=== PATIENT | male | born 1940 | race Caucasian/White ===

== ENCOUNTER 2023-12-07 06:40 | Outpatient (RCR) | payer OTHER, SELFPAY | END 2023-12-07 23:59 | disposition home or self-care (01) | LOC: RST 06:40 | PROVIDERS: ATTENDING PHYSICIAN Internal Medicine Gastroenterology; FAMILY PHYSICIAN Family Medicine | DX: R13.19 Other dysphagia (principal); R13.12 Dysphagia, oropharyngeal phase | CPT/HCPCS: 92526; 92610 ==

== ENCOUNTER → 2023-12-21 11:16 | Outpatient (REF) | payer OTHER, SELFPAY | LOC: RAD 11:16 | PROVIDERS: ATTENDING PHYSICIAN Internal Medicine Rheumatology; FAMILY PHYSICIAN Family Medicine | DX: M81.0 Age-related osteoporosis without current pathological fracture (principal) | CPT/HCPCS: 77080 ==

== ENCOUNTER 2024-01-04 08:00 | Outpatient (RCR) | payer OTHER, SELFPAY | END 2024-01-04 23:59 | disposition home or self-care (01) | LOC: RST 08:00 | PROVIDERS: ATTENDING PHYSICIAN Internal Medicine Gastroenterology; FAMILY PHYSICIAN Family Medicine | DX: R13.19 Other dysphagia (principal); R13.12 Dysphagia, oropharyngeal phase | CPT/HCPCS: 92526 ==

== ENCOUNTER → 2024-01-15 07:45 | Outpatient (REF) | payer OTHER, SELFPAY | LOC: RAD 07:45 | PROVIDERS: ATTENDING PHYSICIAN Surgery Vascular Surgery; FAMILY PHYSICIAN Family Medicine | DX: I71.43 Infrarenal abdominal aortic aneurysm, without rupture (principal) | CPT/HCPCS: 76770 ==

== ENCOUNTER 2024-01-25 06:26 | Outpatient (RCR) | payer OTHER, SELFPAY | END 2024-01-25 23:59 | disposition home or self-care (01) | LOC: RST 06:26 | PROVIDERS: ATTENDING PHYSICIAN Internal Medicine Gastroenterology; FAMILY PHYSICIAN Family Medicine | DX: R13.19 Other dysphagia (principal); R13.12 Dysphagia, oropharyngeal phase | CPT/HCPCS: 92526 ==

== ENCOUNTER → 2024-02-06 12:38 | Outpatient (REF) | payer OTHER, SELFPAY | LOC: RAD 12:38 | PROVIDERS: ATTENDING PHYSICIAN Family Medicine | DX: D35.02 Benign neoplasm of left adrenal gland (principal) | CPT/HCPCS: 74150 ==

== ENCOUNTER 2024-02-14 08:12 | Outpatient (REF) | payer OTHER, SELFPAY | END 2024-02-14 13:50 | disposition home or self-care (01) | LOC: RAD 08:12 | PROVIDERS: ATTENDING PHYSICIAN Internal Medicine Gastroenterology; FAMILY PHYSICIAN Family Medicine | DX: R13.12 Dysphagia, oropharyngeal phase (principal) | CPT/HCPCS: 74230; 92611 ==

== ENCOUNTER → 2024-08-18 10:21 | Outpatient (REF) | payer OTHER, SELFPAY | LOC: HWRAD 10:21 | PROVIDERS: ATTENDING PHYSICIAN Family Medicine | DX: M25.551 Pain in right hip (principal) | CPT/HCPCS: 73523 ==

== ENCOUNTER → 2024-10-21 16:06 | Outpatient (REF) | payer OTHER, SELFPAY | LOC: RAD 16:06 | PROVIDERS: ATTENDING PHYSICIAN Family Medicine | DX: M25.561 Pain in right knee (principal) | CPT/HCPCS: 73560 ==

== ENCOUNTER → 2024-12-04 10:14 | Outpatient (REF) | payer OTHER, SELFPAY | LOC: RCS 10:14 | PROVIDERS: ATTENDING PHYSICIAN Internal Medicine Cardiovascular Disease; FAMILY PHYSICIAN Family Medicine | DX: Z95.2 Presence of prosthetic heart valve (principal) | CPT/HCPCS: 93306 ==

== ENCOUNTER → 2025-01-27 07:48 | Outpatient (REF) | payer OTHER, SELFPAY | LOC: DHVS 07:48 | PROVIDERS: ATTENDING PHYSICIAN Physician Assistant; FAMILY PHYSICIAN Family Medicine | DX: I71.43 Infrarenal abdominal aortic aneurysm, without rupture (principal) | CPT/HCPCS: 76770 ==

== ENCOUNTER → 2025-02-10 11:02 | Outpatient (REF) | payer OTHER, SELFPAY | LOC: RAD 11:02 | PROVIDERS: ATTENDING PHYSICIAN Surgery Vascular Surgery; FAMILY PHYSICIAN Family Medicine | DX: I71.43 Infrarenal abdominal aortic aneurysm, without rupture (principal) | CPT/HCPCS: 74174; Q9967 ==

== ENCOUNTER 2025-04-16 06:11 | Inpatient (IN) | payer OTHER, SELFPAY ==
[2025-04-13 09:13] VITALS: BMI 23.6
[2025-04-13 09:59] LABS: % Basophils 0.6 % (0-2); % Eosinophils 1.2 % (0-6); % Immature Granulocytes 0.2 % (0-0.5); % Lymphocytes 20.4 % (20.5-51.1); % Monocytes 10.2 % (1.7-9.3); % Neutrophils 67.4 % (42.2-75.2); Absolute Eosinophils 0.1 10^3/uL (0-0.7); Absolute Lymphocytes 1.3 10^3/uL (1.2-3.4); Absolute Monocytes 0.7 10^3/uL (0.1-0.6); Absolute Neutrophils 4.4 10^3/uL (1.4-6.5); Hematocrit 39.7 % (39.0-52.0); Hemoglobin 13.4 g/dL (13.0-18.0); Mean Corp Hgb Conc. 33.8 g/dL (33.0-37.0); Mean Corpuscular Hgb 32.4 pg (27.0-31.0); Mean Corpuscular Volume 96.1 fL (80.0-94.0); Mean Platelet Volume 10.7 fL (7.4-10.4); Nucleated Red Blood Cells % 0 % (-); Platelet Count 89 10^3/uL (130-400); Red Blood Cell Count 4.13 10^6/uL (4.70-6.10); Red Cell Dist. Width 12.9 % (11.5-14.5); White Blood Cell Count 6.5 10^3/uL (4.8-10.8)
[2025-04-13 10:01] LABS: INR 0.97; PT 13.2 Sec (11.4-14.6)
[2025-04-13 10:02] LABS: APTT 29.7 Sec (23.4-35.0)
[2025-04-13 11:23] LABS: Blood Urea Nitrogen 33 mg/dl (9-20); Calcium 9.3 mg/dl (8.4-10.2); Carbon Dioxide 25 mmol/L (22-30); Chloride 101 mmol/L (98-107); Estimated Creatinine Clearance 47 ml/min; Glucose 93 mg/dl (70-99); Potassium 4.4 mmol/L (3.5-5.1); Sodium 132 mmol/L (135-145); eGFR > 60.00
--- NOTE | 2025-04-15 08:12 | PTCARENOTE ---
Addendum entered by Cate Horn RN 04/15/25 14:01:
Dr. Barboza notified of patients 6/2 platelets- no additional interventions required
Original Note:
Patients 6/2 Platelets Thao- Gavi @ Dr. Matute office notified
[2025-04-16] VITALS (12 sets, daily range): BP systolic 114–165; BP diastolic 47–96; BMI 22.7
[2025-04-16] MEDS: BACTROBAN NASAL 1 GRAM NASAL (06:57)
[2025-04-16] MEDS: PERIDEX 0.12% ORAL RINSE 15 ML PO (06:57)
--- NOTE | 2025-04-16 06:59 | W.SUR.PREOP ---
Pre-Operative Surgical Note
-
I have examined this patient prior to the performance of the scheduled procedure.
The patient's condition is unchanged from the time of the current History and
Physical and the patient is able to undergo the scheduled procedure.
[2025-04-16 07:28] LABS: % Basophils 0.6 % (0-2); % Eosinophils 1.9 % (0-6); % Immature Granulocytes 0.6 % (0-0.5); % Lymphocytes 19.7 % (20.5-51.1); % Monocytes 11.4 % (1.7-9.3); % Neutrophils 65.8 % (42.2-75.2); Absolute Eosinophils 0.1 10^3/uL (0-0.7); Absolute Lymphocytes 1.1 10^3/uL (1.2-3.4); Absolute Monocytes 0.6 10^3/uL (0.1-0.6); Absolute Neutrophils 3.5 10^3/uL (1.4-6.5); Hematocrit 39.5 % (39.0-52.0); Hemoglobin 13.6 g/dL (13.0-18.0); Mean Corp Hgb Conc. 34.4 g/dL (33.0-37.0); Mean Corpuscular Hgb 32.6 pg (27.0-31.0); Mean Corpuscular Volume 94.7 fL (80.0-94.0); Mean Platelet Volume 10.3 fL (7.4-10.4); Nucleated Red Blood Cells % 0 % (-); Platelet Count 85 10^3/uL (130-400); Red Blood Cell Count 4.17 10^6/uL (4.70-6.10); Red Cell Dist. Width 12.8 % (11.5-14.5); White Blood Cell Count 5.3 10^3/uL (4.8-10.8)
--- NOTE | 2025-04-16 09:41 | W.SUR.POST ---
Surgical Immediate Post Op
Note
Pre Op Diagnosis: AAA
Post Op Diagnosis: AAA
Procedure Performed: EVAR
Primary Surgeon: Kalia
Anesthesia: General
Estimated Blood Loss: 30cc
Fluids: See anesthesia flow sheet
Drains/Shunts: none
Specimens/Cultures: none
Doppler/Duplex/Angio (Y/N): Y
Complications: none
Operative Findings: Successful EVAR
[2025-04-16 10:15] LABS: Hematocrit 36.7 % (39.0-52.0); Hemoglobin 12.9 g/dL (13.0-18.0); Mean Corp Hgb Conc. 35.1 g/dL (33.0-37.0); Mean Corpuscular Hgb 33.1 pg (27.0-31.0); Mean Corpuscular Volume 94.1 fL (80.0-94.0); Mean Platelet Volume 10.5 fL (7.4-10.4); Platelet Count 70 10^3/uL (130-400); Red Cell Dist. Width 12.7 % (11.5-14.5); White Blood Cell Count 7.9 10^3/uL (4.8-10.8)
[2025-04-16] MEDS: CARDENE 200 IV (10:15)
[2025-04-16 10:30] LABS: APTT 33.4 Sec (23.4-35.0)
[2025-04-16 10:32] LABS: Blood Urea Nitrogen 24 mg/dl (9-20); Calcium 9.1 mg/dl (8.4-10.2); Carbon Dioxide 22 mmol/L (22-30); Chloride 109 mmol/L (98-107); Estimated Creatinine Clearance 51 ml/min; Glucose 103 mg/dl (70-99); Potassium 4.5 mmol/L (3.5-5.1); Sodium 137 mmol/L (135-145); eGFR > 60.00
--- NOTE | 2025-04-16 10:34 | OR.RPT ---
Operative Report
Operative Report
PROCEDURE DATE: 04/16/2025
Preoperative diagnosis: Enlarging infrarenal abdominal aortic aneurysm
Postoperative diagnosis: Same
Procedure:
1. Endovascular repair of abdominal aortic aneurysm with bifurcated modular endoprosthesis (Paradise C3 Excluder) with left iliac limb extension.
2. Percutaneous bilateral common femoral artery closure.
3. Supervision and interpretation.
Surgeon: Kalia
Booster Plant Operator: None
Complications: None
Anesthesia: General
Indications for procedure:
Abdominal aortic aneurysm over 5 cm that had demonstrated growth. Risk/benefit/alternatives of repair were fully discussed. Endovascular pair was discussed. Patient understood all wished to proceed.
Description of procedure:
Patient was identified brought to the operating room placed on the table in supine position. After the adequate administration of anesthesia and perioperative antibiotics he was prepped and draped in the standard surgical fashion. A standard
preoperative timeout was undertaken and everybody was in agreement the plan. Bilateral common femoral artery access was obtained under direct duplex ultrasound guidance. 6 Micronesian sheaths were placed over 0.035 inch wires. Next, small 1 cm
incisions were made around the sheath entry sites bilaterally. Blunt dissection was undertaken with hemostats to facilitate percutaneous suture delivery. Next, using the ProGlide suture system, percutaneous sutures were deployed at the 10:00 and 2
o'clock position bilaterally in the standard fashion. Suture strands were tagged outside the skin. We exchanged for 11 Micronesian sheaths bilaterally. The patient was given an 5000 units of intravenous heparin. Next using a KMP catheter, I guided
wires into the supraceliac aorta from bilateral access sites. On the right side I exchanged out for a pigtail catheter which was positioned in the juxtarenal aorta. I wished to obtain angiography to measure length to the iliacs so as to select the
appropriate graft. Therefore power injection aortography was performed and length to the right iliac bifurcation from the inferior edge of the renal arteries was measured. As such the appropriate graft was selected. Note the initial power
injection proved to be too high with the pigtail catheter, noting that the renal artery origins was slightly lower than would be expected. Note also there was a left-sided renal artery stenosis noted. This was seen on CT scan imaging prior as well.
Now Amplatz wires were placed up into the descending thoracic aorta from both groin access sites. On the right side 16 Micronesian Paradise dry seal sheath was advanced into the aorta, and from the left side 12 Micronesian Paradise dry seal sheath was advanced into
the aorta both done under fluoroscopy.
I then brought the main body device into place. It was oriented under fluoroscopy in the field before loading it over the wire and inserting it through the right-sided sheath. I had oriented such that the limbs would cross intentionally somewhat.
(This was based on the wire lay on fluoroscopy). The main body was a Paradise C3 Excluder 26 mm x 14 mm x 16 cm length (Paradise [id number]). Once this was advanced to the level of the juxtarenal aorta, power injection aortography was obtained via the
left-sided pigtail catheter. This was done in the appropriate obliquity based on the CT scan imaging prior. Initial imaging of the renal arteries was slightly challenging due to overlying bowel gas. I difficulty seeing the right renal artery
origin well. The right renal artery was just slightly lower than the left renal artery based on CT scan imaging. However was finally able to better ascertain. The origin of the renal arteries were marked on the screen.
Next, the right sided dry seal sheath was withdrawn to the level of the contralateral gate. I confirmed positioning of the contralateral gate and then began deployment of the stent graft just inferior to the renal artery origins. I was intially
satisfied with its positioning and deployed it to the level of the contralateral gate which was fully deployed now. I was satisfied. I then exchanged my pigtail catheter over a floppy Glidewire, and having pulled it down below the contralateral
gate I then used a KMP catheter and the floppy angled hydrophilic Glidewire to cannulate the contralateral gate. Once I did so I was then able to advance my pigtail catheter through the gate, spinning the catheter to confirm that I was in the true
lumen of the graft. Next I performed aortogram again to confirm positioning of the proximal aspect of the stent graft with good filling of the renal arteries. While both renal arteries filled reasonably well, I felt that they did encroach
especially on the right the renal artery origin. Therefore, I constrained the C3 Excluder graft and lower to the slightest bit. I did not really have to lower it much just by constraining it and then unconstraining it, it lowered a couple
millimeters just enough to pull away from the right renal artery origin so as not to encroach on it anymore. Now I was satisfied.
At this point I then placed an Amplatz wire through the left sided pigtail catheter and perform retrograde pelvic angiogram. This was done in the appropriate obliquity as well. The iliac bifurcation was marked on the screen. I then used a
contralateral limb with a 16 mm x 11.5cm contralateral iliac limb ([id number]). This was positioned nicely with suitable overlap in the contralateral gate (3 cm) and the distal aspect just short of the iliac bifurcation. Once I completed this, I
withdrew my sheath on the right side slightly further back in the pelvis. Pelvic angiogram demonstrated the iliac bifurcation and confirmed distal ipsilateral limb to be just appropriately short of the iliac bifurcation. I therefore then released
the top constraint of the stent graft, and then deployed the remainder of the ipsilateral iliac limb. I then withdrew the delivery device.
Next a molding balloon was used to molded the proximal and distal seal zones as well as the overlap sites. Power injection completion aortography was now performed that demonstrated good positioning of the graft. However it appeared that there may
have been a very subtle type Ia endoleak streaming along the left lateral wall of the graft. Therefore I then reused the molding balloon to mold the proximal seal zone once again. I thought that I might have to extend with an aortic cuff.
However, at this point, I obtained power injection aortography magnified. And now I could see the graft was actually very well-positioned only 1 or 2 mm inferior to the right renal artery. There provide no further room to extend. And now I did
not see any type Ia endoleak. There appeared to be potentially a small delayed type II endoleak. Now that I was satisfied, next I exchanged my pigtail catheter back for a Amplatz wire. Next, I sequentially removed the sheath while cinching down
the percutaneous sutures. This was initially done on the right side and then on the left. Once hemostasis was noted the wire was then withdrawn, the knot was tightened with a knot pusher. Hemostasis was confirmed. The knot was then locked and
the suture strands trimmed. This was done as noted on the right initially and then on the left. Hemostasis was fully achieved bilateral groins with good femoral pulses bilaterally. The small skin incisions were then closed with 4-0 Monocryl
subcuticular stitch and Dermabond was applied. Patient tolerated procedure well. He had palpable pedal pulses upon completion bilaterally. All sponge, needle, instrument counts were correct at the end of the case. Patient was transported to
recovery room in stable condition.
[2025-04-16 10:43] LABS: PT 15.8 Sec (11.4-14.6)
[2025-04-16] MEDS: NSS 1000 IV ×2 (11:01→22:07)
--- NOTE | 2025-04-16 11:42 | SUR.PHASEI ---
received patient from OR on Cardene drip, BP monitored and weaned off Cardene. approx 20 min after arrival in pacu - c/o numbness and pins and needles left hand - especially left thumb. good pulses. left hand with extensive purple echymosis from
pre- hospital. Reports this is common for him and has had shoulder impingment. then c/o some numbness left foot - brief. this also happens at home - neuropathy in feet. Dr Motta visits at bedside - updated. Foot normal. left thumb usually with
pins and needle feeling. vss, minimal discomfort .. discharge to ICCU with hand off at bedside.
--- NOTE | 2025-04-16 12:00 | PTCARENOTE ---
11:30, Received patient from PACU, post EVAR AAA, B/L groin puncture sites, surgical glue and open to air. Right groin site had a bump feeling, Dr. Motta was aware and said it's scar tissue. Pt A&Ox4, denied pain throughout, 2LNC titrated down to RA,
AICD left upper chest, V paced seen on the monitor, rate in the 60s, EKG ordered per ICU protocol, Right wrist Bernadette, zeroed and performed squarewave test, 16Fr Coude Armendariz draining yellow urine.
12:00, Restarted patient on Cardene drip per order as SBP was up in 170s. Made CONSUMER INSIGHTS SPECIALIST Erma aware.
--- NOTE | 2025-04-16 14:04 | CON.INTV ---
Consultation
Consultation Request
Date/Time Consultation Requested: 04/16/2025
Date/Time Consultation Performed: 04/16/2025
Requesting Provider: Ovi Motta
Performing Provider: Kurt Ferguson
Reason for Consultation: Abdominal Aortic aneurysm
Medical History
-
Chief Complaint: Enlarging AAA
History of Present Illness:
Patient is 84 gentleman with known history of critical aortic stenosis status post TAVR and known history of AAA. Patient follows up with vascular surgery as outpatient. A CT angio earlier this year compared to the year before showed enlargement
of the AAA. Patient was recommended to consider surgical repair. Patient was brought to the operating room on 04/16 and had endovascular repair of abdominal aortic aneurysm with bifurcated modular endoprosthesis along with left iliac limb
extension. Postprocedure, patient was admitted to the ICU and mixing plant dumper consultation was requested for further input.
Past Medical History: Reports Other (Cardiac (TAVR 06/24/2020, AICD placement August 2020), Tonsilectomy and Other (Hernia surgery, Partial parathyroidectomy, Nasal surgery)), RA, aortic stenosis s/p TAVR, AAA, heart failure with preserved ejection
fraction, history of TIA, gastroesophageal flux disease, hypertension, chronic thrombocytopenia history of glaucoma, cataract, prostate enlargement
Past Surgical History: Reports Other (Cardiac (TAVR 06/24/2020, AICD placement August 2020), Tonsilectomy and Other (Hernia surgery, Partial parathyroidectomy, Nasal surgery))
Social History
Tobacco: Non-smoker
Alcohol: None
Drug: None
Family History
Family History: Not pertinent
Allergies / Home Medications
Allergies / Home Medications
Allergies
Allergy/AdvReac Type Severity Reaction Status Date / Time
codeine Allergy hyperactive Verified 04/16/25 06:30
Home Medications
�Medication �Instructions �Recorded �Confirmed �Last Taken �Type
ascorbic acid (vitamin C) 1,000 mg 1,000 mg PO DAILY Supplement 05/27/20 04/16/25 04/08/25 08:00 History
tablet (Vitamin C)
cholecalciferol (vitamin D3) 25 1,000 unit PO DAILY Supplement 05/27/20 04/16/25 04/08/25 08:00 History
mcg (1,000 unit) capsule (Vitamin
D3)
coQ10 (ubiquinol) 100 mg capsule 100 mg PO BID Supplement 05/27/20 04/16/25 04/08/25 08:00 History
hydroxychloroquine 200 mg tablet 400 mg PO MOWEFR Rheumatoid 05/27/20 04/16/25 04/15/25 08:00 History
Arthritis
levothyroxine 50 mcg tablet 50 mcg PO DAILY Thyroid 05/27/20 04/16/25 04/16/25 05:00 History
rosuvastatin 40 mg tablet 20 mg PO HS High cholesterol 05/27/20 04/16/25 04/15/25 21:00 History
aspirin 81 mg chewable tablet 81 mg PO HS Blood clot 10/24/20 04/16/25 04/15/25 21:00 History
prevention/tx
metoprolol succinate 25 mg 12.5 mg PO QPM Blood pressure 01/24/23 04/16/25 04/15/25 21:00 History
tablet,extended release 24 hr
acetaminophen 325 mg tablet 650 mg (2 x 325 mg) PO Q4HPRN PRN 01/27/23 04/16/25 04/14/25 08:00 Rx
mild pain/PEREIRA/temp> 100.4F #30 tabs
Balance Of Nature 6 cap PO DAILY 04/08/25 04/16/25 04/08/25 08:00 History
Prevagen 1 tab PO DAILY 04/08/25 04/16/25 04/08/25 08:00 History
Probiotic 1 cap PO DAILY 04/08/25 04/16/25 04/08/25 08:00 History
ascorbic acid 1,000 1 ea PO PRN PRN Cold Symptoms 04/08/25 04/16/25 04/08/25 08:00 History
wf-[id number]-cnjbqdof powder
effervescent pack (Emergen-C)
guar gum 2 tbsp PO DAILY 04/08/25 04/16/25 04/15/25 08:00 History
hydroxychloroquine 200 mg tablet 200 mg PO SUTUTHSA 04/08/25 04/16/25 04/15/25 08:00 History
(Plaquenil)
pantoprazole 20 mg tablet,delayed 20 mg PO DAILY 04/08/25 04/16/25 04/15/25 08:00 History
release (Protonix)
polyethylene glycol 3350 17 gram 17 g PO DAILY 04/08/25 04/16/25 04/15/25 08:00 History
oral powder packet (Miralax)
magnesium 200 mg tablet 400 mg PO DAILY 04/16/25 04/16/25 04/08/25 08:00 History
Review of Systems
-
Hematologic/Lymphatic: Other (No new symptoms reported)
Vitals / Labs / Diagnostic Testing
Vital Signs
Temp Pulse Resp BP Pulse Ox
97.5 F 70 21 150/96 98
04/16/25 12:00 04/16/25 13:45 04/16/25 13:45 04/16/25 11:30 04/16/25 13:45
Lab Data
04/16/25 10:04
04/16/25 10:04
Laboratory Results
04/16/25
10:04
PT 15.8 H
INR 1.20
APTT 33.4
Diagnostic Testing:
Physical Exam
-
HEENT: Normocephalic
Cardiovascular: S1/S2
Respiratory: Clear and Non-Labored Respirations
GI: Soft and Non Distended
Neurology: Awake, Alert and Oriented
Skin: Warm
General: Comfortable
Assessment
-
Patient is s/p endovascular abdominal aortic aneurysm repair, by vascular surgery service, POD #0
Continue observation following procedure
Follow neurovascular checks per protocol
ASA, metoprolol and rosuvastatin
Follow BP monitoring and parameters as set by primary team
Cardiac history noted
Monitor on telemetry
Pain control per protocol
RASS goal 0
No prior history of pulmonary disease, No smoking history
CXR reviewed indicating no acute disease
PFT from 2007 reviewed, unremarkable
Encouraged IS
Diet advancement per protocol
Aspiration precautions
GI prophylaxis: On pantoprazole 20 daily
Creat at baseline, follow UO
Critical I/Os
Void trials
Replete electrolytes as needed
No signs/symptoms suspicious for infectious etiology at this time
Will observe off antibiotics for now
Follow temperatures/CBC
Hb and platelets postoperatively stable. Known history of chronic thrombocytopenia, will continue to monitor
DVT prophylaxis: On heparin
Encouraged OOB/PT/OT/ambulation once cleared by surgical team
Other medical diagnoses:
- Thrombocytopenia, chronic. Has been stable, no history of excessive bleeding
- History of coronary artery disease, last angiogram did not show any significant obstructive coronary artery disease
- History of critical aortic stenosis, status post TAVR with ICD
- Heart failure with preserved ejection fraction, EF 45 to 50%
- Gastroesophageal reflux disease
- Hyperlipidemia
- Hypothyroidism
Critical Care time 65 mins -- The patient is admitted for acute critical illness for the treatment of vital organ failure and/or prevention of further life-threatening conditions. Total care includes time spent in review of history, physical exam,
medications, hemodynamic/ventilator parameters, laboratory data, imaging and discussion with house staff, pharmacy, respiratory therapy, product support rep, and nursing.
Data:
CXR 04/2025: Unremarkable
CT Abd/pelvis Angio 02/2025: 1. FUSIFORM INFRARENAL ABDOMINAL AORTIC ANEURYSM (4.9 cm AP diameter).
2. SEVERE STENOSIS (greater than 70% diameter) in the PROXIMAL LEFT RENAL ARTERY.
3. Severe calcific atherosclerotic plaque in both proximal common iliac arteries causing less than 50% diameter stenosis.
4. 2.3 cm left adrenal adenoma.
5. Moderate air distention of the distal esophagus and stomach.
6. Previous TURP.
7. Grade 2 anterolisthesis of L4 on L5 secondary to severe facet joint arthrosis.
8. 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
ECHO 11/2024: Normal left ventricular wall thickness.
Mildly reduced left ventricular systolic function.
Left ventricular ejection fraction is 40% by Brandt's method, but visually 45-
50%.
Mild inferolateral and anterolateral wall hypokinesis.
ICD wire seen.
Mild to moderate mitral regurgitation.
TAVR with peak/mean gradients across the aortic valve are 16/7 mmHg.
No aortic regurgitation is seen.
Mild to moderate tricuspid regurgitation.
Mild to moderate pulmonic regurgitation.
Normal pericardium without effusion.
Compared to 11/2023 echocardiogram LV function and TAVR gradients are stable
PFT 2007. Normal spirometry, normal lung volumes, normal diffusion capacity.
TAVR 06/2020: 1. Severe symptomatic aortic stenosis. Successful deployment of a 29 mm Ash S3 valve with minimal aortic insufficiency post procedure
2. Successful arteriotomy closure with 2 Perclose devices and an 8 Fr. Angio-Seal
3. Coronary angiography post valve deployment with stable widely patent coronary anatomy
4. Successful closure of the left common femoral arteriotomy with a 6 Fr. Angio-Seal
--- NOTE | 2025-04-16 16:00 | PTCARENOTE ---
Reassessed the patient, no changes from previous assessments. Odilon Newman was updated at bedside.
[2025-04-16] MEDS: TOPROL XL 12.5 MG PO (17:42)
--- NOTE | 2025-04-16 20:00 | PTCARENOTE ---
Resumed care of pt this evening. Neurovascular checks performed w/ dayshift RN and were unchanged. Pt denies any numbness or tingling sensations. Pt able to lift legs, wiggle toes, and has adequate capillary refill. Pt's lower extremities are also
warm to touch. Pt's b/l groin surgical sites are scabbed, FLOW TRADER w/ surgical adhesive present. Pt denies pain at this time.
[2025-04-16] MEDS: LOW STRENGTH ASPIRIN 81 MG PO (22:07)
[2025-04-16] MEDS: CRESTOR 20 MG PO (22:07)
--- NOTE | 2025-04-17 01:00 | PTCARENOTE ---
Upon reassessment neurovascular checks remain unchanged. Pt resting comfortably.
[2025-04-17 04:11] VITALS: BMI 23.1
[2025-04-17 04:23] LABS: Hematocrit 38.1 % (39.0-52.0); Hemoglobin 13.4 g/dL (13.0-18.0); Mean Corp Hgb Conc. 35.2 g/dL (33.0-37.0); Mean Corpuscular Hgb 32.8 pg (27.0-31.0); Mean Corpuscular Volume 93.2 fL (80.0-94.0); Mean Platelet Volume 10.4 fL (7.4-10.4); Platelet Count 88 10^3/uL (130-400); Red Blood Cell Count 4.09 10^6/uL (4.70-6.10); Red Cell Dist. Width 12.8 % (11.5-14.5); White Blood Cell Count 11.2 10^3/uL (4.8-10.8)
[2025-04-17 04:25] LABS: INR 1.05; PT 14.2 Sec (11.4-14.6)
[2025-04-17 04:26] LABS: APTT 27.9 Sec (23.4-35.0)
[2025-04-17 04:40] LABS: Blood Urea Nitrogen 23 mg/dl (9-20); Calcium 9.5 mg/dl (8.4-10.2); Carbon Dioxide 22 mmol/L (22-30); Chloride 110 mmol/L (98-107); Estimated Creatinine Clearance 57 ml/min; Glucose 133 mg/dl (70-99); Potassium 4.6 mmol/L (3.5-5.1); Sodium 138 mmol/L (135-145); eGFR > 60.00
[2025-04-17] MEDS: SYNTHROID 50 MCG PO (06:10)
[2025-04-17 07:12] VITALS: BP 159/88
--- NOTE | 2025-04-17 08:00 | PTCARENOTE ---
07:00, received patient A&Ox4, on RA, AV paced on the monitor, Right wrist Bernadette positional, checked with manual BP cuff, SBP within goal range, fu in place, B/L groin punture sites checked, DP pulses normal.
08:00, received orders at bedside from vascular team, pending d/c Bernadette and Marcello.
--- NOTE | 2025-04-17 08:36 | W.PN.VS ---
Addendum entered and electronically signed by Ovi Motta MD 04/17/25 08:54:
Seen and examined with WELLNESS MANAGER Jose and CRISTOFER Burton. Agree with findings as noted below. Patient without significant complaints. Abdomen soft, nondistended, nontender. Groin small incisions bilaterally clean dry intact. No hematomas. Feet warm with
2+ palpable pedal pulses bilaterally.
Labs reviewed. Platelets back to baseline. (Chronically thrombocytopenic).
Plan/as discussed and noted below.
Original Note:
Today's Communication / Plan
-
Seen and assessed with Dr Motta
Assessment/Plan
-
POD 1 EVAR
Plan:
-DC kristin
-DC IVF
-PO meds
-OOB/ambulate
-Likely DC later today
Subjective Data
-
Date of Service: April 17, 2025
Pt seen at bedside this am with Dr Motta. Pt offers no complaints at this time. No events overnight, denies abd pain.
Objective Data
-
Vital Signs
Temp Pulse Resp BP Pulse Ox
97.8 F 60 20 153/73 98
04/17/25 07:14 04/17/25 05:30 04/17/25 05:30 04/16/25 20:31 04/17/25 05:30
Intake and Output
04/16/25 04/17/25 04/18/25
06:59 06:59 06:59
Intake Total 2446.25 / 2446.25
Output Total 3725 / 3725
Balance -1278.75 / -1278.75
Intake:
Oral fluids 720 / 720
IV fluids (Total) 1726.25 / 1726.25
Cardene 56.25 / 56.25
nss 1670 / 1670
Output:
Urine, Armendariz 3725 / 3725
Lab Results
04/17/25 03:57
04/17/25 03:57
Calcium 9.5 mg/dl (8.4-10.2) 04/17/25 03:57
Physical Exam
-
AAOX3
No tachypnea
No tachycardia
Abd soft, NT, ND
Groin sites c/d/i, soft, flat
BL feet warm and pink
Palpable DP pulses BL
[2025-04-17 08:45] VITALS: BP 152/85
[2025-04-17] MEDS: PROTONIX 20 MG PO (08:56)
[2025-04-17] MEDS: MAGNESIUM OXIDE 500 MG PO (08:56)
[2025-04-17] MEDS: HEPARIN 5000 UNITS SC (08:56)
[2025-04-17] MEDS: MIRALAX 17 GRAMS PO (08:57)
[2025-04-17 09:10] VITALS: BP 157/88
[2025-04-17 10:00] VITALS: BP 130/80
[2025-04-17] MEDS: TYLENOL 650 MG PO (10:33)
--- NOTE | 2025-04-17 10:57 | W.PN.INTV ---
Today's Communication / Plan
Recommendations
- Increase activity as tolerated
- Patient stable to transfer out of ICU, crosstie inspector service will sign off, please call as needed.
Assessment
-
Patient is s/p endovascular abdominal aortic aneurysm repair, by vascular surgery service, POD #1
Continue observation following procedure
Follow neurovascular checks per protocol
ASA, metoprolol and rosuvastatin
Follow BP monitoring and parameters as set by primary team
Cardiac history noted
Monitor on telemetry
Pain control per protocol
RASS goal 0
No prior history of pulmonary disease, No smoking history
CXR reviewed indicating no acute disease
PFT from 2007 reviewed, unremarkable
Encouraged IS
Diet advancement per protocol
Aspiration precautions
GI prophylaxis: On pantoprazole 20 daily
Creat at baseline, follow UO
Critical I/Os
Void trials
Replete electrolytes as needed
No signs/symptoms suspicious for infectious etiology at this time
Will observe off antibiotics for now
Follow temperatures/CBC
Hb and platelets postoperatively stable. Known history of chronic thrombocytopenia, will continue to monitor
DVT prophylaxis: On heparin
Encouraged OOB/PT/OT/ambulation once cleared by surgical team
Other medical diagnoses:
- Thrombocytopenia, chronic. Has been stable, no history of excessive bleeding. 88K this AM
- History of coronary artery disease, last angiogram did not show any significant obstructive coronary artery disease
- History of critical aortic stenosis, status post TAVR with ICD
- Heart failure with preserved ejection fraction, EF 45 to 50%
- Gastroesophageal reflux disease
- Hyperlipidemia
- Hypothyroidism
Critical Care time 45 mins -- The patient is admitted for acute critical illness for the treatment of vital organ failure and/or prevention of further life-threatening conditions. Total care includes time spent in review of history, physical exam,
medications, hemodynamic/ventilator parameters, laboratory data, imaging and discussion with house staff, pharmacy, respiratory therapy, glue machine operator, and nursing.
Data:
CXR 04/2025: Unremarkable
CT Abd/pelvis Angio 02/2025: 1. FUSIFORM INFRARENAL ABDOMINAL AORTIC ANEURYSM (4.9 cm AP diameter).
2. SEVERE STENOSIS (greater than 70% diameter) in the PROXIMAL LEFT RENAL ARTERY.
3. Severe calcific atherosclerotic plaque in both proximal common iliac arteries causing less than 50% diameter stenosis.
4. 2.3 cm left adrenal adenoma.
5. Moderate air distention of the distal esophagus and stomach.
6. Previous TURP.
7. Grade 2 anterolisthesis of L4 on L5 secondary to severe facet joint arthrosis.
8. 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
ECHO 11/2024: Normal left ventricular wall thickness.
Mildly reduced left ventricular systolic function.
Left ventricular ejection fraction is 40% by Brandt's method, but visually 45-
50%.
Mild inferolateral and anterolateral wall hypokinesis.
ICD wire seen.
Mild to moderate mitral regurgitation.
TAVR with peak/mean gradients across the aortic valve are 16/7 mmHg.
No aortic regurgitation is seen.
Mild to moderate tricuspid regurgitation.
Mild to moderate pulmonic regurgitation.
Normal pericardium without effusion.
Compared to 11/2023 echocardiogram LV function and TAVR gradients are stable
PFT 2007. Normal spirometry, normal lung volumes, normal diffusion capacity.
TAVR 06/2020: 1. Severe symptomatic aortic stenosis. Successful deployment of a 29 mm Ash S3 valve with minimal aortic insufficiency post procedure
2. Successful arteriotomy closure with 2 Perclose devices and an 8 Fr. Angio-Seal
3. Coronary angiography post valve deployment with stable widely patent coronary anatomy
4. Successful closure of the left common femoral arteriotomy with a 6 Fr. Angio-Seal
Subjective Dataa
Subjective Data
Date of Service:
Date of Service: April 17, 2025
Subjective:
Patient comfortably sitting in bed in no acute distress.
Review of Systems
Genitourinary: Other (All 14 systems reviewed and negative except as stated above in the history of present illness.)
Objective Data
Data Reviewed
Vital Signs / I&O / Oxygen:
Vital Signs
Temp Pulse Resp BP Pulse Ox
97.8 F 64 17 157/88 98
04/17/25 07:14 04/17/25 09:10 04/17/25 09:10 04/17/25 09:10 04/17/25 09:00
Intake and Output
04/16/25 04/17/25 04/18/25
06:59 06:59 06:59
Intake Total 2446.25 / 2526.25 440 / 440
Output Total 3725 / 3925 450 / 450
Balance -1278.75 / -1398.75 -10 / -10
SaO2 98
Nasal Cannula flow liters per 2
minute
Physical Exam
General: Comfortable
HEENT: Normocephalic
Cardiovascular: S1-S2
Respiratory: Clear and Non-Labored Respirations
GI: Soft and Non Distended
Neurology: Awake and Alert
Skin: Warm
Labs/Micro/Reports
Lab Data
04/17/25 03:57
04/17/25 03:57
Laboratory Results
04/17/25
03:57
PT 14.2
INR 1.05
APTT 27.9
[2025-04-17 11:00] VITALS: BP 133/68
--- NOTE | 2025-04-17 11:57 | CM ---
Initial assessment completed with patient who lives alone in a 2 story home plus basement with 1/2 bath on 1st and B/B on 2nd, 2 steps to enter home. MASTICATOR patient was independent in ADL's and ambulation. Has 3 RW and does not use. Drives. No in-home
services. Does have a HC-POA. No service. Patient is active, travels and exercises daily. he has a son and D[place]I-L in the [facility] area and a son in [place] and a daughter in [place]. He recently visited [place] and [place] and [facility]. Support
system is family, friends and neighbors. All children will be with patient post discharge. PCP is Dr. Marcio Golden and Pharmacy is [facility] in . Discharge POC: Home with [facility]. Referral made.
--- NOTE | 2025-04-17 12:00 | PTCARENOTE ---
Reassessed the patient, Kareem discontinued per order, pt OOB to chair, able to ambulate to the bathroom, VS WNL.
[2025-04-17 12:05] VITALS: BP 113/81
--- NOTE | 2025-04-17 13:51 | W.DS.TRANS ---
DC Summary - Physicians Assistant
-
Discharge Instructions:
Discharge Diagnosis/Procedures Endovascular repair of abdominal aortic aneurysm
with bifurcated modular endoprosthesis (Cadiz C3
Excluder) with left iliac limb extension.
Diet As tolerated
Activity No strenuous activity
Driving Restrictions No driving for 1 week
Bathing Restrictions OK to Shower
Instructions:
Stand-Alone Forms: Vascular Surg Discharge Instr
Changes to Home Medications: No
Discharge Medications:
DC Medications w/original date entered in [facility]
ascorbic acid (vitamin C) 1,000 mg tablet (Vitamin C) 1,000 mg PO DAILY Supplement 05/27/20
cholecalciferol (vitamin D3) 25 mcg (1,000 unit) capsule (Vitamin D3) 1,000 unit PO DAILY Supplement 05/27/20
coQ10 (ubiquinol) 100 mg capsule 100 mg PO BID Supplement 05/27/20
hydroxychloroquine 200 mg tablet 400 mg PO MOWEFR Rheumatoid Arthritis 05/27/20
levothyroxine 50 mcg tablet 50 mcg PO DAILY Thyroid 05/27/20
rosuvastatin 40 mg tablet 20 mg PO HS High cholesterol 05/27/20
aspirin 81 mg chewable tablet 81 mg PO HS Blood clot prevention/tx 10/24/20
metoprolol succinate 25 mg tablet,extended release 24 hr 12.5 mg PO QPM Blood pressure 01/24/23
acetaminophen 325 mg tablet 650 mg (2 x 325 mg) PO Q4HPRN PRN mild pain/PEREIRA/temp> 100.4F #30 tabs 01/27/23
Balance Of Nature 6 cap PO DAILY Supplement 04/08/25
Prevagen 1 tab PO DAILY Supplement 04/08/25
Probiotic 1 cap PO DAILY Supplement 04/08/25
ascorbic acid 1,000 ju-[id number] powder effervescent pack (Emergen-C) 1 ea PO PRN PRN Cold Symptoms 04/08/25
guar gum 2 tbsp PO DAILY Constipation 04/08/25
hydroxychloroquine 200 mg tablet (Plaquenil) 200 mg PO SUTUTHSA Rheumatoid arthritis 04/08/25
pantoprazole 20 mg tablet,delayed release (Protonix) 20 mg PO DAILY Gastrointestinal Issue 04/08/25
polyethylene glycol 3350 17 gram oral powder packet (Miralax) 17 g PO DAILY Constipation 04/08/25
magnesium 200 mg tablet 400 mg PO DAILY Supplement 04/16/25
Home Medication Changes
Pending Results: No
--- NOTE | 2025-04-17 14:00 | CM ---
Patient has been medically cleared for discharge to home with ROSALINDA MATUTE RN. Family will transport home.
--- NOTE | 2025-04-17 14:30 | PTCARENOTE ---
Discharged education provided to the patient and family members at bedside, all questions answered, all personal belongings taken home.
== END 2025-04-17 14:34 | disposition home health service (06) | DRG 269 ==
LOC: ICU 06:11
PROVIDERS: Nurse Practitioner Acute Care; ADMITTING PHYSICIAN Surgery Vascular Surgery; CONSULT PHYSICIAN Internal Medicine; PRIMARYCARE PHYSICIAN Family Medicine
PROC: 04V03DZ Restriction of Abdominal Aorta with Intraluminal Device, Percutaneous Approach (ICD-10-PCS; 2025-04-16)
DX: I71.43 Infrarenal abdominal aortic aneurysm, without rupture (principal); I50.32 Chronic diastolic (congestive) heart failure; I70.1 Atherosclerosis of renal artery; I11.0 Hypertensive heart disease with heart failure; N40.0 Benign prostatic hyperplasia without lower urinary tract symptoms; D69.6 Thrombocytopenia, unspecified; K21.9 Gastro-esophageal reflux disease without esophagitis; E78.00 Pure hypercholesterolemia, unspecified; E03.9 Hypothyroidism, unspecified; H40.9 Unspecified glaucoma; Z95.2 Presence of prosthetic heart valve; Z86.73 Personal history of transient ischemic attack (TIA), and cerebral infarction without residual deficits; Z95.810 Presence of automatic (implantable) cardiac defibrillator
CPT/HCPCS: 34705; 34713; 36415; 71046; 80048; 85025; 85027; 85610; 85730; 86850; 86900; 86901; 93005; C1725; C1760; C1769; C1892; C1894

== ENCOUNTER → 2025-05-07 08:17 | Outpatient (REF) | payer OTHER, SELFPAY | LOC: RAD 08:17 | PROVIDERS: ATTENDING PHYSICIAN Registered Nurse; FAMILY PHYSICIAN Family Medicine; OTHER PHYSICIAN Surgery Vascular Surgery | DX: I71.43 Infrarenal abdominal aortic aneurysm, without rupture (principal) | CPT/HCPCS: 74174; Q9967 ==

== ENCOUNTER 2025-06-04 15:12 | Outpatient (RCR) | payer OTHER, SELFPAY | END 2025-06-04 23:59 | disposition home or self-care (01) | LOC: RPT 15:12 | PROVIDERS: ATTENDING PHYSICIAN Specialist; FAMILY PHYSICIAN Family Medicine | DX: R39.81 Functional urinary incontinence (principal); Z73.6 Limitation of activities due to disability; R35.0 Frequency of micturition; M62.89 Other specified disorders of muscle; R35.1 Nocturia | CPT/HCPCS: 97110; 97161; 97530 ==

== ENCOUNTER 2025-06-21 10:15 | Emergency (ER) | payer OTHER, SELFPAY ==
[2025-06-21 10:17] VITALS: BP 170/103
[2025-06-21 11:38] LABS: Hematocrit 38.9 % (39.0-52.0); Hemoglobin 13.4 g/dL (13.0-18.0); Mean Corp Hgb Conc. 34.4 g/dL (33.0-37.0); Mean Corpuscular Volume 93.5 fL (80.0-94.0); Nucleated Red Blood Cells % 0 % (-); Platelet Count 96 10^3/uL (130-400); Red Cell Dist. Width 12.9 % (11.5-14.5)
[2025-06-21 11:46] LABS: ALT (SGPT) 39 U/L (0-50); AST (SGOT) 56 U/L (17-59); Albumin 4.6 g/dl (3.5-5.0); Alkaline Phosphatase 47 U/L (38-126); Blood Urea Nitrogen 16 mg/dl (9-20); Calcium 9.1 mg/dl (8.4-10.2); Carbon Dioxide 25 mmol/L (22-30); Chloride 100 mmol/L (98-107); Glucose 95 mg/dl (70-99); Potassium 4.2 mmol/L (3.5-5.1); Sodium 132 mmol/L (135-145); Total Protein 7.2 g/dl (6.3-8.2); eGFR > 60.00
[2025-06-21 11:59] LABS: Troponin I 0.017 ng/ml
[2025-06-21 13:00] VITALS: BP 154/89
[2025-06-21 13:20] LABS: Troponin I 0.020 ng/ml
--- NOTE | 2025-06-21 13:30 | ED.GENMED ---
History of Present Illness
General
Chief Complaint: Headache
Time Seen by Provider: 06/21/25 10:46
History of Present Illness
History of Present Illness:
See MDM
Past History
Past History
ED Past Medical History: CAD, GERD, Hypercholesterolemia, Valvular disease, Hypothyroidism, Psychiatric (Anxiety) and Other (AAA, migraine headaches for 15-20 years, Glaucoma, Prostate laser Sx)
ED Past Surgical History: Cardiac (TAVR 06/24/2020, AICD placement August 2020), Tonsilectomy and Other (Hernia surgery, Partial parathyroidectomy, Nasal surgery)
Social History
Tobacco: Non-smoker
Alcohol: Occasional
Drug: None
Personal:
Living: with family
Employment: Retired
Family History
Family History: Other
Phy Exam
Physical Exam
Physical Exam:
See MDM
Course
Orders/Labs/Results
Orders:
Orders
06/21/25 10:19
Electrocardiogram (*1) Urgent
Reason for Study: Other
Other Reason for Exam: fells lightheaded and had left arm pain yesterday
06/21/25 10:20
EKG- Treatment ONCE
06/21/25 10:54
CT Head W/o Iv Contrast Urgent
Comment:
Reason For Exam: headache
CR Chest - 2 Views Urgent
Comment:
Reason For Exam: chest pain
06/21/25 11:26
Complete Blood Count/With Diff Urgent
Comprehensive Metabolic Panel Urgent
Troponin I Urgent
06/21/25 12:49
Troponin I Urgent
Abnormal Lab Results
06/21/25
11:26
RBC 4.16 L 10^6/uL
(4.70-6.10)
Hct 38.9 L %
(39.0-52.0)
MCH 32.2 H pg
(27.0-31.0)
Plt Count 96 L 10^3/uL
(130-400)
Absolute Lymphs (auto) 0.7 L 10^3/uL
(1.2-3.4)
Neutrophils % 79.4 H %
(42.2-75.2)
Lymphocytes % 10.8 L %
(20.5-51.1)
Sodium 132 L mmol/L
(135-145)
06/21/25 11:26
06/21/25 11:26
Vital Signs
Initial and Last Documented VS:
Initial Vital Signs
Temp Pulse Resp BP Pulse Ox
97.4 F 88 16 170/103 98
06/21/25 10:17 06/21/25 10:17 06/21/25 10:17 06/21/25 10:17 06/21/25 10:17
Last Documented Vital Signs
Temp Pulse Resp BP Pulse Ox
97.4 F 88 16 170/103 98
06/21/25 10:17 06/21/25 10:17 06/21/25 10:17 06/21/25 10:17 06/21/25 10:17
MDM/Problems Addressed
Differential Diagnosis Includes:
Note:
CHIEF COMPLAINT(S)
Dull pain in the arms, lightheadedness, headache, and gastrointestinal discomfort.
HISTORY OF PRESENT ILLNESS
The patient is an 84-year-old male who presented with a dull pain in his arms that occurred suddenly while he was engaged in routine activities. This episode was accompanied by a sensation of lightheadedness and a headache described as feeling like
'somebody kind of constrictor.' The lightheadedness has persisted since the initial episode. He also reports experiencing symptoms eliana to gastroesophageal reflux, affecting his stomach, potentially associated with or subsequent to the episode. He
has a history of significant cardiovascular intervention, including an aortic valve replacement in 2019, recent abdominal aortic aneurysm repair on April 26 of this year, and a pacemaker insertion. There is no current chest discomfort. On physical
exertion, such as walking to his car and to [employer], he reports experiencing lightheadedness but denies chest pain. He experiences tingling in his hand, which was suggested could be related to a calcium issue. The patient�s EKG is noted to be
satisfactory, further evaluations, including blood tests and possibly interrogating the pacemaker, have been planned.
PAST MEDICAL AND SURGICAL HISTORY
Aortic valve replacement in 2019 and abdominal aortic aneurysm repair in April of the current year.
CHRONIC MEDICAL CONDITIONS SIGNIFICANTLY AFFECTING CARE
Cardiovascular disease, requiring previous aortic valve replacement and current pacemaker.
PHYSICAL EXAM
General: Alert, no acute distress.
Skin: Warm, dry.
Head: Normocephalic, atraumatic
Neck: Appears supple, trachea midline.
Eyes, Ears, Nose, Mouth, and Throat: Oral mucosa moist.
Cardiovascular: No signs of cyanosis. Regular rate and rhythm
Respiratory: Respirations are non-labored.. Lungs clear
Abdomen: Non-distended
Musculoskeletal: No deformities
Neurological: No focal neurological deficit observed.
Psychiatric: Cooperative, appropriate mood and affect.
PROBLEM LIST
Acute:
1. Dull pain in the arms.
2. Lightheadedness.
3. Headache.
4. Gastrointestinal discomfort.
Chronic:
1. Cardiovascular disease.
PLAN
1. Conduct blood tests to assess potential calcium imbalances and other cardiac-related issues.
2. Consider pacemaker interrogation to ensure proper functionality.
3. Evaluate results from cardiac-specific tests and if necessary, proceed with further diagnostics.
4. Monitor for any persistent or emerging symptoms to ensure comprehensive cardiac function assessment.
5. Facilitate patient comfort and reassurance during the diagnostic process.
DIFFERENTIAL DIAGNOSIS
The Differential Diagnosis includes, in no particular order and is not limited to:
1. Coronary artery disease.
2. Atrial fibrillation or other cardiac arrhythmias.
3. Hypertensive heart disease.
4. Gastroesophageal reflux disease.
5. Anxiety or stress-induced symptoms.
6. Electrolyte imbalance, possibly involving calcium.
7. Transient ischemic attack.
8. Tension-type headache.
9. Orthostatic hypotension.
10. Pacemaker malfunction.
EKG
My independent EKG interpretation is:
- Rhythm: Paced rhythm
- [place]: Normal axis
- No evidence of STEMI
CARE-UPDATE
06/21/25 - 11:33
The pacemaker interrogation revealed no recent episodes of VTAC (ventricular tachycardia), VF (ventricular fibrillation), or any events recorded by the device.
Disposition:
SUMMARY OF ENCOUNTER
The patient, an 84-year-old male, presented with dull pain in the arms, lightheadedness, a headache, and gastrointestinal discomfort. In the emergency department, his symptoms were assessed with particular focus on potential cardiovascular issues,
given his medical history. A CT head scan was performed and was negative on multiple reassessments. The patient reported feeling better over time without any specific interventions. Cardiology-related diagnostics, including a second troponin test,
were performed and returned negative.
PLAN
The patient will follow up with his long term in 10 days for further evaluation. He was advised to monitor his symptoms and to return if any concerning changes occur.
INDEPENDENT REVIEW OF LABS AND INTERPRETATION OF TESTS
- My independent review of the CT head is negative.
- My independent review of the second troponin is negative.
PATIENT EDUCATION AND COUNSELING
The patient was informed of the negative findings from the CT head and the second troponin. It was explained that the possibility of degeneration of the right first rib should be evaluated further in an outpatient setting. The importance of
follow-up with cardiology was emphasized.
FOLLOW-UP INSTRUCTIONS
The patient is instructed to attend his already scheduled cardiology appointment in 10 days and to return to the emergency department if he experiences any worsening or new symptoms.
MEDICAL DECISION MAKING
1. Number and Complexity of Problems Addressed:
- Chronic conditions affecting care: Cardiovascular disease.
- Differential Diagnosis: Coronary artery disease, atrial fibrillation or other cardiac arrhythmias, hypertensive heart disease, gastroesophageal reflux disease, anxiety or stress-induced symptoms, electrolyte imbalance, transient ischemic attack,
tension-type headache, orthostatic hypotension, pacemaker malfunction.
2. Data:
- Category 1: My independent interpretation of the CT head was negative. My independent review of the second troponin was negative.
3. Risk:
- Consideration of Admission/Observation: Escalation of care including admission/observation was considered given the complexity and risk of the patients presenting complaint and underlying comorbidities. However, ultimately I feel the patient is
safe for outpatient management with close follow-up. Reasoning: Work-up reassuring, does not reveal any acute life/organ-threatening processes, patients symptoms well controlled upon reevaluation, reexamination is reassuring, vitals are stable,
patient agreeable with discharge, reliable for follow-up.
DIAGNOSIS
- Arm pain, unspecified (ICD-10: M79.603)
- Lightheadedness and Dizziness (ICD-10: R42)
- Headache, unspecified (ICD-10: R51)
- Gastroesophageal reflux disease without esophagitis (ICD-10: K21.9)
*Pulse Oximetry
SaO2: 98
Oxygen Mode of Delivery: Room air
Patient hypoxic: no
*Critical Care Note
Total Time (30-74mins, 75-104mins- exclusive of procedures): Not Applicable
ED Attending Note
-
Portions of this chart may have been created with voice recognition software.� Occasional wrong word or��sound alike� substitutions may have occurred due to the inherent limitations of voice recognition software.
Discharge Plan
Departure
Patient Disposition: Home (Routine Discharge)
Date of Disposition: 06/21/25
Time of Disposition: 13:30
Patient with high blood pressure during this ER visit?: Yes
Discharge Problem:
Chest pain
Instructions: Dizziness
Prescriptions:
No Action
ascorbic acid (vitamin C) [Vitamin C] 1,000 MG tablet
1,000 mg PO DAILY
levothyroxine 50 MCG tablet
50 mcg PO DAILY
hydroxychloroquine 200 MG tablet
400 mg PO MOWEFR
cholecalciferol (vitamin D3) [Vitamin D3] 1,000 UNIT capsule
1,000 unit PO DAILY
rosuvastatin 40 MG tablet
20 mg PO HS
coQ10 (ubiquinol) 100 MG capsule
100 mg PO BID
aspirin 81 MG tablet,chewable
81 mg PO HS
metoprolol succinate 25 mg tablet extended release 24 hr
12.5 mg PO QPM
acetaminophen 325 mg Tablet
650 mg PO Q4HPRN PRN (Reason: mild pain/PEREIRA/temp> 100.4F) Qty: 30 0RF
polyethylene glycol 3350 [Miralax] 17 gram Powder In Packet
17 g PO DAILY
guar gum Packet
2 tbsp PO DAILY
pantoprazole [Protonix] 20 mg Tablet,Delayed Release (Dr/Ec)
20 mg PO DAILY
hydroxychloroquine [Plaquenil] 200 mg Tablet
200 mg PO SUTUTHSA
Emergen-C 1,000 mg Powder Effervescent In Packet
1 ea PO PRN PRN (Reason: Cold Symptoms)
Balance Of Nature
6 cap PO DAILY
Patient Comments:
Fruit and Vegatable
Prevagen
1 tab PO DAILY
Probiotic
1 cap PO DAILY
magnesium 200 mg Tablet
400 mg PO DAILY
Referrals:
Marcio Golden MD [Family Provider, Family Practice]
Activity Restrictions/Additional Instructions:
Please return for any worsening symptoms.
You may return at any time if you have further concerns.
Please keep your cardiology appointment 10 days from now.
Please follow up with your doctor at the first available appointment, preferably this week.
Thank you for choosing [facility].
Interventions
Interventions:
*Risk Screen - Suicide Last Done: 06/21/25 10:17
*Neglect/Abuse Screening Last Done: 06/21/25 10:17
Discharge Date and Time
Print Language: [id number]
== END 2025-06-21 13:35 | disposition home or self-care (01) ==
LOC: EMR 10:15
PROVIDERS: EMERGENCY PHYSICIAN Student in an Organized Health Care Education/Training Program; FAMILY PHYSICIAN Family Medicine
DX: R07.9 Chest pain, unspecified (principal); I25.10 Atherosclerotic heart disease of native coronary artery without angina pectoris; E78.00 Pure hypercholesterolemia, unspecified; E03.9 Hypothyroidism, unspecified; H40.9 Unspecified glaucoma; K21.9 Gastro-esophageal reflux disease without esophagitis; R41.9 Unspecified symptoms and signs involving cognitive functions and awareness; G43.909 Migraine, unspecified, not intractable, without status migrainosus; Z79.82 Long term (current) use of aspirin; Z95.810 Presence of automatic (implantable) cardiac defibrillator; Z95.2 Presence of prosthetic heart valve; Z95.0 Presence of cardiac pacemaker
CPT/HCPCS: 99284; 93288; 70450; 71046; 80053; 84484; 85025; 93005

== ENCOUNTER 2025-06-22 07:33 | Outpatient (RCR) | payer OTHER, SELFPAY | END 2025-06-22 23:59 | disposition home or self-care (01) | LOC: RPT 07:33 | PROVIDERS: ATTENDING PHYSICIAN Family Medicine | DX: R25.2 Cramp and spasm (principal); Z73.6 Limitation of activities due to disability; R20.2 Paresthesia of skin; M62.81 Muscle weakness (generalized) | CPT/HCPCS: 97161; 97530 ==

== ENCOUNTER → 2025-06-25 08:39 | Outpatient (REF) | payer OTHER, SELFPAY | LOC: RAD 08:39 | PROVIDERS: ATTENDING PHYSICIAN Family Medicine | DX: R25.2 Cramp and spasm (principal); R93.89 Abnormal findings on diagnostic imaging of other specified body structures | CPT/HCPCS: 71046; 93922; 93925; 93970 ==

== ENCOUNTER 2025-06-26 09:14 | Outpatient (RCR) | payer OTHER, SELFPAY | END 2025-06-26 23:59 | disposition home or self-care (01) | LOC: RPT 09:14 | PROVIDERS: ATTENDING PHYSICIAN Specialist; FAMILY PHYSICIAN Family Medicine | DX: R39.81 Functional urinary incontinence (principal); Z73.6 Limitation of activities due to disability; R35.0 Frequency of micturition; R35.1 Nocturia | CPT/HCPCS: 97110; 97112; 97530 ==

== ENCOUNTER 2025-07-17 14:15 | Outpatient (RCR) | payer OTHER, SELFPAY | END 2025-07-24 23:59 | disposition home or self-care (01) | LOC: RPT 14:15 | PROVIDERS: ATTENDING PHYSICIAN Specialist; FAMILY PHYSICIAN Family Medicine | DX: R39.81 Functional urinary incontinence (principal); Z73.6 Limitation of activities due to disability; R35.0 Frequency of micturition; R35.1 Nocturia | CPT/HCPCS: 97110; 97112; 97140 ==

== ENCOUNTER 2025-08-05 10:05 | Outpatient (RCR) | payer OTHER, SELFPAY | END 2025-08-05 23:59 | disposition home or self-care (01) | LOC: RPT 10:05 | PROVIDERS: ATTENDING PHYSICIAN Family Medicine | DX: Z73.6 Limitation of activities due to disability; R20.2 Paresthesia of skin; M62.81 Muscle weakness (generalized); R25.2 Cramp and spasm | CPT/HCPCS: 97110; 97112 ==

== ENCOUNTER 2025-08-19 09:33 | Outpatient (RCR) | payer OTHER, SELFPAY | END 2025-08-19 23:59 | disposition home or self-care (01) | LOC: RPT 09:33 | PROVIDERS: ATTENDING PHYSICIAN Family Medicine | DX: R25.2 Cramp and spasm (principal); Z73.6 Limitation of activities due to disability; R20.2 Paresthesia of skin; M62.81 Muscle weakness (generalized) | CPT/HCPCS: 97110; 97112 ==

== ENCOUNTER 2025-09-04 07:51 | Outpatient (RCR) | payer OTHER, SELFPAY | END 2025-09-04 23:59 | disposition home or self-care (01) | LOC: RPT 07:51 | PROVIDERS: ATTENDING PHYSICIAN Specialist; FAMILY PHYSICIAN Family Medicine | DX: R39.81 Functional urinary incontinence (principal); Z73.6 Limitation of activities due to disability; R35.0 Frequency of micturition; R35.1 Nocturia | CPT/HCPCS: 97110; 97112; 97140; 97530 ==

== ENCOUNTER → 2025-09-10 12:14 | Outpatient (REF) | payer OTHER, SELFPAY | LOC: HWRAD 12:14 | PROVIDERS: ATTENDING PHYSICIAN Family Medicine | DX: R07.0 Pain in throat (principal) | CPT/HCPCS: 76536 ==

== ENCOUNTER 2025-09-29 11:30 | Outpatient (RCR) | payer OTHER, SELFPAY | END 2025-09-29 23:59 | disposition home or self-care (01) | LOC: RPT 11:30 | PROVIDERS: ATTENDING PHYSICIAN Specialist; FAMILY PHYSICIAN Family Medicine | DX: R39.81 Functional urinary incontinence (principal); Z73.6 Limitation of activities due to disability; R35.0 Frequency of micturition; R35.1 Nocturia | CPT/HCPCS: 97110; 97112 ==

== ENCOUNTER 2025-10-23 10:44 | Outpatient (RCR) | payer OTHER, SELFPAY | END 2025-10-23 23:59 | disposition home or self-care (01) | LOC: RPT 10:44 | PROVIDERS: ATTENDING PHYSICIAN Specialist; FAMILY PHYSICIAN Family Medicine | DX: R39.81 Functional urinary incontinence (principal); Z73.6 Limitation of activities due to disability; R35.0 Frequency of micturition; R35.1 Nocturia | CPT/HCPCS: 97110; 97112; 97140 ==